=== PATIENT | male | born 1980 | race African-American/Black ===

== ENCOUNTER 2022-05-12 18:25 | Emergency (ER) | payer SELFPAY ==
[~2022-05-12] VITALS: Ht 172.7 cm; Wt 88.6 kg
[2022-05-12 18:30] VITALS: TEMP 98.7
[2022-05-12 19:52] VITALS: BP 175/110; PULSE 66
== END 2022-05-12 19:52 | disposition home or self-care (01) ==
LOC: COL.ER 18:25
DX: M54.10 Radiculopathy, site unspecified (principal); Z28.310 Unvaccinated for COVID-19